=== PATIENT | female | born 2000 | race African-American/Black ===

== ENCOUNTER 2023-03-01 20:50 | Emergency (ER) | payer OTHER ==
[2023-03-01 21:14] VITALS: BP 120/80
[2023-03-01] MEDS ORDERED: polyethylene glycoL 3350 17 GM PACKET PO STA (21:19)
--- NOTE | 2023-03-01 21:21 | ED Physician Documentation ---
PD HPI ABD PAIN - Stated complaint Stated Complaint: FEMALE - Chief complaint Chief Complaint: Abd Pain - History obtained from History obtained from: Patient - Additional information Additional information: 22-year-old G now 4P2. LMP of February 02 corresponding to 4-week and 5-day gestation. She feels quite bloated and has not had a bowel movement in 5 days. She has been nauseous without vomiting. She denies urinary complaints. There is no pelvic pain or cramping. No fluid loss or bleeding. No other health problems. PD PAST MEDICAL HISTORY - Past Medical History Past Medical History: No Cardiovascular: None Respiratory: None Neuro: None Endocrine/Autoimmune: None GI: None APPELLATE CONFEREE: None : None HEENT: None Psych: None Musculoskeletal: None Derm: None - Past Surgical History Past Surgical History: No - Present Medications Home Medications: Ambulatory Orders Medication Instructions Recorded Confirmed Metoclopramide [Reglan] 10 mg PO Q6H PRN #20 tablet 03/01/23 Pnv 119/Iron Fum/Folic Acid 1 cap PO DAILY 03/01/23 03/01/23 [ 19 Tablet] polyethylene glycoL 3350(BULK) 17 gm PO DAILY PRN #1 each 03/01/23 [Miralax] - Allergies Allergies/Adverse Reactions: Allergies Allergy/AdvReac Type Severity Reaction Status Date / Time Penicillins AdvReac Unknown Verified 03/01/23 21:07 - Social History Does the pt smoke?: No Smoking Status: Never smoker Does the pt drink ETOH?: No Does the pt have substance abuse?: No - Immunizations Immunizations are current?: Yes - POLST Patient has POLST: No PD ED PE NORMAL - Vitals Vital signs reviewed: Yes - General General: Alert and oriented X 3, No acute distress - Abdomen Abdomen: Other (Soft and nontender but she is bloated with hyperactive bowel sounds. Bedside ultrasound demonstrates a suggestion of an intrauterine yolk sac but too early to give any more detail. No free fluid or ascites.) - Neuro Neuro: Alert and oriented X 3, Normal speech Results - Vitals Vitals: Vital Signs - 24 hr 03/01/23 21:04 Temperature 36.6 C Heart Rate 65 Respiratory 18 Rate Blood Pressure 120/80 O2 Saturation 100 Oxygen O2 Source Room air PD Medical Decision Making - ED course ED course: Her symptoms are suggestive of constipation. There really is not pelvic pain or cramping or free fluid or anything else to suggest an ectopic or the necessity for work-up for that. She has not pooped in 5 days and has not tried anything for it so that is certainly worth treating. She is given first dose of MiraLAX here. She is nauseous and treated with Reglan as well. Departure - Departure Disposition: Home, Self Care Clinical Impression: Constipation Qualifiers: Constipation type: other constipation type Qualified Code(s): K59.09 - Other co nstipation Condition: Good Record reviewed to determine appropriate education?: Yes Instructions: ED Constipation Prescriptions: polyethylene glycoL 3350(BULK) [Miralax] 17 gm PO DAILY PRN #1 each PRN Reason: Constipation Metoclopramide [Reglan] 10 mg PO Q6H PRN #20 tablet PRN Reason: nausea or headache Comments: As discussed, I suspect you are simply constipated, take the MiraLAX and you can repeat dose tomorrow drinking plenty of fluids and I also prescribed something for nausea. If not better in the next 24 to 48 hours please return for reevaluation. Sooner if worse.
== END 2023-03-01 21:34 | disposition home or self-care (01) ==
LOC: ED 20:50
DX: O26.891 Other specified pregnancy related conditions, first trimester (principal); Z3A.01 Less than 8 weeks gestation of pregnancy; K59.00 Constipation, unspecified
CPT/HCPCS: 99282; 99283; A9270

== ENCOUNTER 2023-03-16 08:00 | Outpatient (CLI) | payer OTHER ==
[2023-03-16 17:00] LABS: BILIRUBIN,URINE NEGATIVE (NEGATIVE); GLUCOSE, URINE (UA) NEGATIVE (NEGATIVE); KETONES,URINE (UA) NEGATIVE (NEGATIVE); LEUKOCYTE ESTERASE, URINE NEGATIVE (NEGATIVE); NITRITE,URINE NEGATIVE (NEGATIVE); OCCULT BLOOD,URINE NEGATIVE (NEGATIVE); PROTEIN,URINE NEGATIVE (NEGATIVE); UROBILINOGEN,URINE 0.2 (NORMAL) E.U./dL (NORMAL)
[2023-03-16 17:01] LABS: CLARITY,URINE HAZY (CLEAR)
[2023-03-16 17:13] LABS: RBC,URINE None Seen /HPF (0-5); WBC,URINE 0-3 /HPF (0-5)
[2023-03-16 17:14] LABS: AMORPHOUS SEDIMENT,UR Moderate /LPF; BACTERIA,URINE Rare /HPF (None Seen); SQUAMOUS EPITHELIAL CELL,UR MOD Squamous (<= Few)
== END 2023-03-16 23:59 | disposition home or self-care (01) ==
LOC: LAB.WC 08:00
PROVIDERS: ATTEND Obstetrics & Gynecology
DX: Z34.90 Encounter for supervision of normal pregnancy, unspecified, unspecified trimester (principal)
CPT/HCPCS: 81001; 87086

== ENCOUNTER 2023-03-17 07:39 | Outpatient (CLI) | payer OTHER ==
[2023-03-17 12:14] LABS: BASOPHILS % (AUTO) 0.4 %; EOSINOPHILS # (AUTO) 0.1 10^3/uL (0.0-0.7); EOSINOPHILS % (AUTO) 1.1 %; HCT - HEMATOCRIT 35.3 % (37.0-47.0); HGB - HEMOGLOBIN 11.4 g/dL (12.0-16.0); LYMPHOCYTES # (AUTO) 1.7 10^3/uL (1.5-3.5); LYMPHOCYTES % (AUTO) 23.8 %; MEAN CORPUSCULAR HEMOGLOBIN 27.2 pg (27.0-31.0); MEAN CORPUSCULAR HGB CONC 32.3 g/dL (32.0-36.0); MEAN CORPUSCULAR VOLUME 84.2 fL (81.0-99.0); MEAN PLATELET VOLUME 11.5 fL (7.9-10.8); MONOCYTES # (AUTO) 0.7 10^3/uL (0.0-1.0); MONOCYTES % (AUTO) 9.4 %; NEUTROPHILS # (AUTO) 4.6 10^3/uL (1.5-6.6); PLT - PLATELET COUNT 210 10^3/uL (130-450); RED BLOOD COUNT 4.19 10^6/uL (4.20-5.40); RED CELL DISTRIBUTION WIDTH 14.3 % (12.0-15.0); WHITE BLOOD COUNT 7.1 x10^3/uL (4.8-10.8)
[2023-03-18 02:08] LABS: HBsAG SCREEN Negative (Negative)
[2023-03-18 04:09] LABS: RPR Non Reactive (Non Reactive)
[2023-03-18 08:10] LABS: HCV AB Non Reactive (Non Reactive); HIV SCREEN 4TH GENERATION Non Reactive (Non Reactive); VARICELLA-ZOSTER AB IGG 200 index (Immune >165)
== END 2023-03-17 07:40 | disposition home or self-care (01) ==
LOC: LAB.N 07:39
PROVIDERS: ATTEND Obstetrics & Gynecology
DX: Z34.90 Encounter for supervision of normal pregnancy, unspecified, unspecified trimester (principal)
CPT/HCPCS: 36415; 81599; 85025; 86592; 86762; 86787; 86803; 86850; 86870; 86880; 86900; 86901; 87340; 87389

== ENCOUNTER 2023-03-20 19:59 | Emergency (ER) | payer OTHER ==
[2023-03-20 20:11] VITALS: BP 112/74; O2SAT 99
[2023-03-20 21:06] LABS: BASOPHILS % (AUTO) 0.4 %; EOSINOPHILS # (AUTO) 0.1 10^3/uL (0.0-0.7); EOSINOPHILS % (AUTO) 1.4 %; HCT - HEMATOCRIT 37.8 % (37.0-47.0); HGB - HEMOGLOBIN 12.1 g/dL (12.0-16.0); LYMPHOCYTES # (AUTO) 2.7 10^3/uL (1.5-3.5); LYMPHOCYTES % (AUTO) 34.4 %; MEAN CORPUSCULAR HEMOGLOBIN 27.3 pg (27.0-31.0); MEAN CORPUSCULAR VOLUME 85.1 fL (81.0-99.0); MONOCYTES # (AUTO) 0.6 10^3/uL (0.0-1.0); MONOCYTES % (AUTO) 8.1 %; NEUTROPHILS # (AUTO) 4.3 10^3/uL (1.5-6.6); NEUTROPHILS % (AUTO) 55.6 %; PLT - PLATELET COUNT 212 10^3/uL (130-450); RED BLOOD COUNT 4.44 10^6/uL (4.20-5.40); RED CELL DISTRIBUTION WIDTH 14.2 % (12.0-15.0); WHITE BLOOD COUNT 7.7 x10^3/uL (4.8-10.8)
--- NOTE | 2023-03-20 21:14 | ED Physician Documentation ---
PD HPI FEMALE - Stated complaint Stated Complaint: ABDOMINAL PX - Chief complaint Chief Complaint: Abd Pain - History obtained from History obtained from: Patient - Additional information Additional information: Patient is a 22-year-old female presenting for evaluation of lower abdominal cramping. She estimates that she is approximately 7 weeks . G4, P2 with 1 prior miscarriage. She was seen in the OB clinic last week just for confirmation of her with a urine test. She had outpatient labs and ultrasound ordered but has not had these done yet. She denies any vaginal bleed ing. She denies dizziness or lightheadedness. She states there has been no change in the cramping but it has been going on since Monday and thus wanted to be evaluated this evening. She denies dysuria or hematuria. No chest pain or shortness of air. Review of Systems Constitutional: denies: Fever Cardiac: denies: Chest pain / pressure Respiratory: denies: Dyspnea GI: denies: Abdominal Pain, Vomiting : denies: Dysuria, Vaginal bleeding Musculoskeletal: denies: Back pain PD PAST MEDICAL HISTORY - Past Medical History Cardiovascular: None Respiratory: None Neuro: None Endocrine/Autoimmune: None GI: None BEHAVIORAL TECHNICIAN: None : None HEENT: None Psych: None Musculoskeletal: None Derm: None - Past Surgical History Past Surgical History: No - Present Medications Home Medications: Ambulatory Orders Medication Instructions Recorded Confirmed Metoclopramide [Reglan] 10 mg PO Q6H PRN #20 tablet 03/01/23 Pnv 119/Iron Fum/Folic Acid 1 cap PO DAILY 03/01/23 03/01/23 [ 19 Tablet] polyethylene glycoL 3350(BULK) 17 gm PO DAILY PRN #1 each 03/01/23 [Miralax] - Allergies Allergies/Adverse Reactions: Allergies Allergy/AdvReac Type Severity Reaction Status Date / Time Penicillins AdvReac Unknown Unknown Verified 03/20/23 20:12 - Social History Does the pt smoke?: No Smoking Status: Never smoker Does the pt drink ETOH?: No Does the pt have substance abuse?: No - Immunizations Immunizations are current?: Yes - POLST Patient has POLST: No PD ED PE NORMAL - General General: Alert and oriented X 3, No acute distress, Well developed/nourished - HEENT HEENT: Atraumatic - Neck Neck: Supple, no meningeal sign - Cardiac Cardiac: RRR, No murmur - Respiratory Respiratory: No respiratory distress, Clear bilaterally - Abdomen Abdomen: Normal bowel sounds, Soft, Non tender, Non distended - Derm Derm: Warm and dry - Extremities Extremities: No edema - Neuro Neuro: Normal speech Results - Vitals Vitals: Vital Signs - 24 hr 03/20/23 20:09 Temperature 36.0 C L Heart Rate 66 Respiratory 16 Rate Blood Pressure 112/74 O2 Saturation 99 Oxygen O2 Source Room air - Labs Labs: Laboratory Tests 03/20/23 03/20/23 03/20/23 20:59 20:59 21:22 WBC 7.7 RBC 4.44 Hgb 12.1 Hct 37.8 MCV 85.1 MCH 27.3 MCHC 32.0 RDW 14.2 Plt Count 212 MPV 11.0 H Neut # (Auto) 4.3 Lymph # (Auto) 2.7 [place] # (Auto) 0.6 Eos # (Auto) 0.1 Baso # (Auto) 0.0 Absolute Nucleated RBC 0.00 Nucleated RBC % 0.0 Sodium 136 Potassium 3.2 L Chloride 105 Carbon Dioxide 20 L Anion Gap 11.0 BUN 9 Creatinine 0.7 Estimated GFR (MDRD) 125 Glucose 82 Calcium 9.5 Total Bilirubin 0.2 AST 19 ALT 12 Alkaline Phosphatase 34 L Total Protein 7.8 Albumin 4.2 Globulin 3.6 Albumin/Globulin Ratio 1.2 Beta HCG, Quant 154540.8 Urine Color YELLOW Urine Clarity CLEAR Urine pH 5.5 Ur Specific [place] 1.025 Urine Protein NEGATIVE Urine Glucose (UA) NEGATIVE Urine Ketones NEGATIVE Urine Occult Blood NEGATIVE Urine Nitrite NEGATIVE Urine Bilirubin NEGATIVE Urine Urobilinogen 0.2 (NORMAL) Ur Leukocyte Esterase NEGATIVE Ur Microscopic Review NOT INDICATED Urine Culture Comments NOT INDICATED PD Medical Decision Making - ED course Complexity details: reviewed results, re-evaluated patient, d/w patient ED course: Patient is a 22-year-old female presenting for evaluation of abdominal cramping in early . She is approximately 7 weeks . Her blood type is B+ that she does not need RhoGAM. CBC, chemistries and urinalysis were obtained and reviewed.Potassium is 3.2 which was replaced orally. hCG is approximately 138,000. Unfortunately at the time of patient's presentation in the emergency department, ultrasound was not available for the evening. Therefore I did perform a bedside ultrasound and was able to confirm an intrauterine . There is positive cardiac activity with approximate heart rate of 140 bpm. Remy rump length based on my estimations is 7 weeks 3 days.I did not see any free fluid.Patient's abdominal exam is benign. Patient is aware that she should call the OB clinic tomorrow to arrange for close follow-up and to have her formal ultrasound done. Patient is counseled on strict return precautions for any new or worsening symptoms. Departure - Departure Disposition: 01 Home, Self Care Clinical Impression: Abdominal cramping affecting , Hypokalemia Condition: Stable Instructions: ED Preg Established Normal Sxs Follow-Up: Roberth Lizama MD [Provider Admit Priv/Credential] - Comments: Please call Dr. Lizama office tomorrow morning for close follow-up. On your testing today your potassium level was slightly low we did give you a potassium pill. Although we did not have formal ultrasound available tonight we did perform a bedside ultrasound showing the located inside the uterus. The fetus does have a good heart rate and is measuring accordingly with your last menstrual period. Your hCG level is 138,000 and your blood type is B+. Please continue to stay hydrated and get plenty of rest. Return to the ER if you develop worsening symptoms such as increased pain, dizz iness, Heavy vaginal bleeding or any new concerns. Forms: PCP List Discharge Date/Time: 03/20/23 22:20
[2023-03-20 21:27] LABS: ALBUMIN 4.2 g/dL (3.2-5.5); ALBUMIN/GLOBULIN RATIO 1.2 (1.0-2.2); BILIRUBIN,TOTAL 0.2 mg/dL (0.2-1.0); CALCIUM 9.5 mg/dL (8.5-10.3); CREATININE 0.7 mg/dL (0.4-1.0); POTASSIUM 3.2 mmol/L (3.5-5.0); TOTAL PROTEIN 7.8 g/dL (6.7-8.2)
[2023-03-20] MEDS ORDERED: POTASSIUM CHLORIDE 20 MEQ TABLET PO STA (21:38)
[2023-03-20 21:39] LABS: BILIRUBIN,URINE NEGATIVE (NEGATIVE); GLUCOSE, URINE (UA) NEGATIVE (NEGATIVE); KETONES,URINE (UA) NEGATIVE (NEGATIVE); LEUKOCYTE ESTERASE, URINE NEGATIVE (NEGATIVE); NITRITE,URINE NEGATIVE (NEGATIVE); OCCULT BLOOD,URINE NEGATIVE (NEGATIVE); PH,URINE 5.5 PH (5.0-7.5); PROTEIN,URINE NEGATIVE (NEGATIVE); UROBILINOGEN,URINE 0.2 (NORMAL) E.U./dL (NORMAL)
[2023-03-20 21:43] LABS: CLARITY,URINE CLEAR (CLEAR)
== END 2023-03-20 22:20 | disposition home or self-care (01) ==
LOC: ED 19:59
DX: O99.891 Other specified diseases and conditions complicating pregnancy (principal); R10.30 Lower abdominal pain, unspecified; E87.6 Hypokalemia; Z3A.01 Less than 8 weeks gestation of pregnancy
CPT/HCPCS: 36415; 80053; 81003; 84702; 85025; 99283; 99284; A9270; 81001; 87086

== ENCOUNTER 2023-03-21 11:05 | Outpatient (CLI) | payer OTHER | END 2023-03-21 11:06 | disposition home or self-care (01) | LOC: LAB 11:05 | PROVIDERS: ATTEND Obstetrics & Gynecology | DX: Z53.9 Procedure and treatment not carried out, unspecified reason (principal) ==

== ENCOUNTER 2023-04-03 16:26 | Outpatient (CLI) | payer OTHER ==
--- NOTE | 2023-04-03 20:45 | Ultrasound Report ---
PROCEDURE: OB First Trimester INDICATIONS: POSITIVE TEST OUTSIDE/PRIOR DATING DATA: Last menstrual period (LMP): 01/28/2023. LMP-based estimated date of delivery (TARAS): 11/04/2023. First dating scan (date and location): Today's exam. Estimated date of delivery (TARAS) from first dating scan: 11/01/2023. TECHNIQUE: Real-time scanning was performed of the fetus and maternal pelvic organs, with image documentation. COMPARISON: None FINDINGS: Intrauterine gestational sac present. Embryo: pole present, measuring 2.9 cm, corresponding to 9 weeks 5 days. Heart rate: 173 bpm. Other: No perigestational fluid collection. Measurement variability in dating: +/- 4 weeks by LMP, +/- 7 days by mean sac diameter (use before 6 weeks gestation if crown-rump length not able to be measured), +/- 5 days by crown-rump length (6-12 weeks gestation). Maternal organs: Ovaries appear within normal limits. IMPRESSION: Single living intrauterine at 9 weeks 5 days, TARAS of 11/01/2023. Findings are concordant wit h clinical dating. Reviewed by: Juancho Wilkerson on 04/03/2023 8:44 PM PDT Approved by: Juancho Wilkerson on 04/03/2023 8:44 PM PDT Station ID: [id number]
== END 2023-04-03 16:27 | disposition home or self-care (01) ==
LOC: DI 16:26
PROVIDERS: ATTEND Obstetrics & Gynecology
DX: Z34.91 Encounter for supervision of normal pregnancy, unspecified, first trimester (principal)

== ENCOUNTER 2023-04-13 08:00 | Outpatient (CLI) | payer OTHER ==
[2023-04-13 21:26] LABS: CHLAMYDIA TRACHOMATIS DNA NEGATIVE (NEGATIVE); NEISSERIA GONORRHOEAE DNA NEGATIVE (NEGATIVE); TRICHOMONAS VAGINALIS DNA NEGATIVE (NEGATIVE)
== END 2023-04-13 23:59 | disposition home or self-care (01) ==
LOC: LAB.WC 08:00
PROVIDERS: ATTEND Obstetrics & Gynecology
DX: Z34.90 Encounter for supervision of normal pregnancy, unspecified, unspecified trimester (principal)
CPT/HCPCS: 87491; 87591; 87661

== ENCOUNTER 2023-06-08 12:37 | Outpatient (CLI) | payer OTHER ==
[2023-06-08 14:20] LABS: THYROID STIMULATING HORMONE 1.34 uIU/mL (0.34-5.60)
[2023-06-13 20:07] LABS: AFP MOM 0.72 (.); AFP VALUE 39.3 ng/mL (.); GEST. AGE ON COLLECTION DATE 18.7 weeks (.); GESTAT. AGE METHOD EDD (.); INSULIN DEP DIABETES No (.); MATERNAL AGE AT EDD 25.3 yr (.); MULTIPLE GESTATION No (.); OPEN SPINA BIFIDA RISK 1 IN 10000 (.); RACE Black (.); RESULTS Report (.); TEST RESULTS *Screen Negative* (.); WEIGHT 144 lbs (.)
== END 2023-06-08 12:38 | disposition home or self-care (01) ==
LOC: LAB 12:37
PROVIDERS: ATTEND Obstetrics & Gynecology
DX: O99.891 Other specified diseases and conditions complicating pregnancy (principal); G47.9 Sleep disorder, unspecified
CPT/HCPCS: 36415; 82105; 84443

== ENCOUNTER 2023-06-20 08:13 | Outpatient (CLI) | payer OTHER ==
--- NOTE | 2023-06-20 19:26 | Ultrasound Report ---
PROCEDURE: OB Detailed Eval INDICATIONS: SUPERVISION OF OUTSIDE/PRIOR DATING DATA: Last menstrual period (LMP): 01/28/2023. LMP-based estimated date of delivery (TARAS): 11/04/2023. First dating scan (date and location): 04/03/2023. Estimated date of delivery (TARAS) from first dating scan: 11/01/2023. The below data below was generated using the ultrasound TARAS of 11/01/2023 TECHNIQUE: Real-time scanning was performed of the fetus, with image documentation and biometric measurements. Endovaginal scanning: Not performed. COMPARISON: 04/03/2023 FINDINGS: General: A single living intrauterine gestation is present. Presentation: Vertex Placenta: Placental position is posterior, without previa. Amniotic fluid index: 17.9 cm, within normal limits for gestational age. Largest vertical pocket me asured 4.9 cm. heart rate: 155 beats per minute. Maternal cervical canal: 2.8 cm long; normal length is 2.5 cm or more. biometrics: Biparietal diameter: 5.0 cm, 21 weeks and 2 days-81st percentile Head circumference: 18.2 cm, 20 weeks and 4 days-49th percentile Abdominal circumference: 15.2 cm, 20 weeks and 3 days-42nd percentile Femur length: 3.4 cm, 20 weeks and 5 days-52nd percentile Estimated gestational age from initial scan: 20 weeks and 3days Composite gestational age from present scan: 20 weeks and 4 days Estimated weight and percentile: 362 g, 53rd percentile Measurement variability in biometric dating: +/- 10 days from 12-20 weeks gestation, +/- 2 weeks from 20-30 weeks gestation, +/- 3 weeks at 30 weeks gestation or later. Anatomic survey: Neuro: Ventricles are normal at less than 10 mm. Cisterna magna is normal at 3-11 mm. Cerebellum i s normal in size and morphology. Nuchal skin fold: Normal at less than 6 mm between 14 and 20 weeks gestational age. Face: Nose and lips, facial profile are normal. Spine: No evidence for spina bifida. Heart: 4-chambered heart is present, with normal ventricular outflow tracts. Diaphragm: Diaphragm is intact. Stomach: Left-sided stomach is present. Kidneys: No hydronephrosis. Normal is less than 5 mm in 2nd trimester, less than 7 mm in 3rd trimester. Cord: 3 vessel cord has orthotopic insertion. Bladder: Normal in size. Extremities: All 4 extremities are visualized. IMPRESSION: Single living intrauterine gestation with estimated sonographic gestational age of approximately 20 w eeks and 4 days. This measures concordantly with estimated gestational age by initial ultrasound of a pproximately 20 weeks and 3 days. Estimated weight of approximately 362 g which correlates with the 53rd percentile for gestational age. Normal interval growth has occurred. Normal routine second trimester anatomy screening survey. Reviewed by: Dejuan Drew MD on 06/20/2023 7:24 PM PST Approved by: Dejuan Drew MD on 06/20/2023 7:24 PM PST Station ID: [id number]
== END 2023-06-20 08:14 | disposition home or self-care (01) ==
LOC: DI 08:13
PROVIDERS: ATTEND Nurse Practitioner
DX: Z34.92 Encounter for supervision of normal pregnancy, unspecified, second trimester (principal)

== ENCOUNTER 2023-08-08 08:18 | Outpatient (CLI) | payer OTHER ==
[2023-08-08 09:29] LABS: HCT - HEMATOCRIT 36.5 % (37.0-47.0); HGB - HEMOGLOBIN 11.8 g/dL (12.0-16.0); MEAN CORPUSCULAR HEMOGLOBIN 27.4 pg (27.0-31.0); MEAN CORPUSCULAR HGB CONC 32.3 g/dL (32.0-36.0); MEAN CORPUSCULAR VOLUME 84.9 fL (81.0-99.0); RED BLOOD COUNT 4.3 10^6/uL (4.20-5.40)
== END 2023-08-08 08:19 | disposition home or self-care (01) ==
LOC: LAB 08:18
PROVIDERS: ATTEND Nurse Practitioner
DX: Z34.90 Encounter for supervision of normal pregnancy, unspecified, unspecified trimester (principal)
CPT/HCPCS: 36415; 82950; 85027

== ENCOUNTER 2023-10-12 08:00 | Outpatient (CLI) | payer OTHER | END 2023-10-12 23:59 | disposition home or self-care (01) | LOC: LAB.WC 08:00 | PROVIDERS: ATTEND Nurse Practitioner | DX: Z36.85 Encounter for antenatal screening for Streptococcus B (principal) | CPT/HCPCS: 87797 ==

== ENCOUNTER 2023-10-29 21:15 | Inpatient (IN) | payer OTHER ==
[2023-10-29] MEDS ORDERED: diphenhydrAMINE INJ 50 MG/ML VIAL IVP PRN (21:51)
[2023-10-29] MEDS ORDERED: OXYTOCIN 10 UNIT/ML VIAL IM PRN (21:51)
[2023-10-29] MEDS ORDERED: ONDANSETRON ODT 4 MG TABLET PO PRN (21:51)
[2023-10-29] MEDS ORDERED: OXYTOCIN/SODIUM CHLORIDE 500 ML IV PRN (21:51)
[2023-10-29] MEDS ORDERED: LABETALOL 20 MG/4 ML SYRINGE IVP PRN ×3 (21:51)
[2023-10-29] MEDS ORDERED: miSOPROStoL 200 MCG TABLET PR PRN (21:51)
[2023-10-29] MEDS ORDERED: TERBUTALINE 1 MG/ML VIAL SUBQ PRN (21:51)
[2023-10-29] MEDS ORDERED: miSOPROStoL 200 MCG TABLET BC PRN (21:51)
[2023-10-29] MEDS ORDERED: hydrALAZINE INJ 20 MG/ML VIAL IVP PRN ×2 (21:51)
[2023-10-29] MEDS ORDERED: TRANEXAMIC ACID IN NACL 1,000 MG/100 ML BAG IV PRN (21:51)
[2023-10-29] MEDS ORDERED: ONDANSETRON 4 MG/2 ML VIAL IVP PRN (21:51)
[2023-10-29] MEDS ORDERED: CALCIUM CARBONATE CHEW 500 MG TABLET PO PRN (21:51)
[2023-10-29] MEDS ORDERED: NIFEdipine 10 MG CAPSULE PO PRN (21:51)
[2023-10-29] MEDS ORDERED: METOCLOPRAMIDE 10 MG TABLET PO PRN (21:51)
[2023-10-29] MEDS ORDERED: METHYLERGONOVINE 0.2 MG/ML VIAL IM PRN (21:51)
[2023-10-29] MEDS ORDERED: METOCLOPRAMIDE 10 MG/2 ML VIAL IVP PRN (21:51)
[2023-10-29] MEDS ORDERED: fentaNYL 100 MCG/2 ML VIAL IVP PRN (21:51)
[2023-10-29] MEDS ORDERED: CARBOPROST TROMETHAMINE 250 MCG/ML VIAL IM PRN (21:51)
[2023-10-29] MEDS ORDERED: lidocaine 1% 20 ML MDV ID PRN (21:51)
[2023-10-29] MEDS ORDERED: SODIUM CHLORIDE FLUSH 0.9% 10 ML SYRINGE IVP PRN (21:51)
[2023-10-29] MEDS ORDERED: ACETAMINOPHEN 500 MG TABLET PO PRN (21:51)
--- NOTE | 2023-10-29 21:59 | PROVIDER PROGRESS NOTE ---
Progress Note HPI: 23y/o G-4P-2 TARAS 11/04/2023. Here for routine OB follow up at 38+5. PT having irregular cxt that are getting more regular, some edema in feet, Baby active. ...................................................................Nikki Cardona October 26, 2023 1:20 PM. Allergies: Allergies Reviewed: Done PENICILLIN (PENICILLIN V POTASSIUM) (Severe) Medications: Meds Reviewed: Done * Electric Breast pump Use 1 device as directed as directed USE TO EXPRESS MILK ACCORDING TO BABY'S NEEDS Z39.1 TARAS 11/04/2023 Blood Pressure Kit kit (blood pressure monitor) Use 1 kit as directed once a day as needed when you have a headache 28 mg iron- 800 mcg tablet (pnv cmb#95-ferrous fumarate-fa) Take 1 tablet by mouth once a day ondansetron HCl 4 mg tablet (ondansetron hcl) Take 1 tablet by mouth every six hours as needed for nausea Problems: Emotional AND/OR mental disease in mother complicating , third trimester (ICD-648.43) (VVW14-Y85.343) Conjunctivitis, right (ICD-372.30) (IWJ72-F04.9) Difficulty sleeping (ICD-780.50) (JAR61-F13.820) Tension-type headache (ICD-339.10) (RYN74-Y94.209) Abdominal pain in early (ICD-648.93) (UUL96-K88.9) Supervision of normal (ICD-V22.1) (DUF08-O84.90) Past Medical History: Denies Past Surgical History: Denies Vital Signs: Patient Profile: 23 Years Old Female Height: 63 inches Weight: 178 pounds BMI: 31.65 BP sittin / 68 Cuff size: regular Pt. in pain? yes Intensity: 4 Vitals Entered By: Nikki Cardona (October 26, 2023 1:20 PM) Meds Reviewed: Done Allergies Reviewed: Done Flowsheet View for Follow-up Visit Estimated weeks of gestation: 38 12/11 Weight: 178 Blood pressure: 118 / 68 Fundal height: Big. Did not complete FHR: 153 Vaginal bleeding: no Vaginal discharge: no activity: yes Labor symptoms: yes position: vertex Cx Dilation: 4 Cx Effacement: 80% Cx Station: -3 Taking vits? Y Smoking: n/a Next visit: likely to L&D Comment: Reviewed GBS negative. FOB came back from deployment last night and surprised her. Caspian sex through since his return. SVE /-2 but still posterior. Not actively maycol regularily. WOuld like to go home and get some errands done. Labor precautions reviewed. L&D charge made aware. ~KJB LMP: 01/28/23 TARAS by LMP: 11/04/23 US: 10/31 @ 9w. Final TARAS: 11/04/23 LDASA initiated 05/10/2023 Chronic tension headaches PCN allergy - note with GBS testing. HTLA Antibodies in blood not clinically significant Not a red cell antibody and not associated with alloimmunization. This will make crossmatch diffucult if patient requires transfusion. If a planned for induction, can consider crossmatch early the morning prior to procedure. This will need to be sent out and will take approximately 24 hours for finalization of appropriately crossmatched blood. care with blood transfusion FOB plans to deploy, mother in law moving in 07/18. Pre- Weight:146.2 BMI: 25.99 Blood type: B+ Antibody: negative CBC: PLT 210 HCT 35.3 HGB 11.4 RUB: 38 VZV: 200 HBsAg: negative HepC: NR RPR/AB-EIA: NR HIV: NR PAP: 02/2023 ASCUS HR HPV+, -16/18- repeat GC/CT: 04/13 Negative HSV: denies self/ partner Genetic testing:MaternitI 21- Negative; AFP- Negative Covid: vaccinated Flu: given 04/13/2023 FAS: completed 06/20/23 Placenta: posterior Cord: 3VC ANGELA: normal EFW: 53%ile 50gm OGCT: 95 TDAP:08/17 Breast Pump:08/17 3rd trimester 08/08/23- H/H 11.8/36.5 PLT 205 GBS: 10/12/2023- Negative Delivery plan: Contraception: This is her last , per pt. Impression & Recommendations: Problem # 1: Supervision of normal (ICD-V22.1) (CML96-O78.90) P: 2 T: 2 A: 1 SAB: 1 L: 2 LMP: 01/28/2023 EDC: 11/04/2023 Height: 63 (09/14/2023 2:52:56 PM) Weight: 178 Weight (pre-): 146.2 (03/16/2023 8:51:02 AM) Chlamydia: NEGATIVE (04/13/2023 11:12:00 AM) Group B: NEGATIVE (10/12/2023 2:30:00 PM) Blood Type: B POS^B POSITIVE^L (03/17/2023 7:47:00 AM) Last Antibody Screen: POSITIVE (03/17/2023 7:47:00 AM) Chlamydia: NEGATIVE (04/13/2023 11:12:00 AM) RPR: Non Reactive (03/17/2023 7:47:00 AM) Last Pap: ASCUS (02/22/2023 8:14:15 AM)
[2023-10-29 23:08] LABS: BASOPHILS % (AUTO) 0.2 %; EOSINOPHILS # (AUTO) 0.2 10^3/uL (0.0-0.7); EOSINOPHILS % (AUTO) 2.3 %; HCT - HEMATOCRIT 34.3 % (37.0-47.0); HGB - HEMOGLOBIN 11.3 g/dL (12.0-16.0); LYMPHOCYTES # (AUTO) 1.9 10^3/uL (1.5-3.5); LYMPHOCYTES % (AUTO) 21.7 %; MEAN CORPUSCULAR HEMOGLOBIN 27.7 pg (27.0-31.0); MEAN CORPUSCULAR HGB CONC 32.9 g/dL (32.0-36.0); MEAN CORPUSCULAR VOLUME 84.1 fL (81.0-99.0); MEAN PLATELET VOLUME 12.1 fL (7.9-10.8); MONOCYTES # (AUTO) 0.7 10^3/uL (0.0-1.0); MONOCYTES % (AUTO) 8.4 %; NEUTROPHILS # (AUTO) 5.7 10^3/uL (1.5-6.6); NEUTROPHILS % (AUTO) 66.8 %; PLT - PLATELET COUNT 193 10^3/uL (130-450); RED BLOOD COUNT 4.08 10^6/uL (4.20-5.40); RED CELL DISTRIBUTION WIDTH 14.7 % (12.0-15.0); WHITE BLOOD COUNT 8.6 x10^3/uL (4.8-10.8)
[2023-10-30] MEDS: LACTATED RINGERS 1,000 ML IV PRN (00:03)
[2023-10-30] MEDS: OXYTOCIN/SODIUM CHLORIDE 500 ML IV SCH (00:04)
[2023-10-30] MEDS ORDERED: ROPIVACAINE 0.2% 200 MG/100 ML BAG EP ONE ×3 (02:32→07:30)
[2023-10-30] MEDS ORDERED: LIDOCAINE 2%-EPI 1:100000 20 ML MDV ONE (02:54)
[2023-10-30] MEDS ORDERED: NALOXONE 0.4 MG/ML VIAL IVP PRN (03:44)
[2023-10-30] MEDS ORDERED: ePHEDrine 50 MG/ML VIAL IVP PRN (03:44)
[2023-10-30] MEDS ORDERED: ROPIVACAINE 0.2% 200 MG/100 ML BAG EP PRN (03:44)
[2023-10-30] MEDS ORDERED: ONDANSETRON 4 MG/2 ML VIAL IVP PRN ×2 (03:44→08:49)
[2023-10-30] MEDS ORDERED: diphenhydrAMINE INJ 50 MG/ML VIAL IVP PRN (03:44)
[2023-10-30] MEDS ORDERED: METOCLOPRAMIDE 10 MG/2 ML VIAL IVP PRN (03:44)
[2023-10-30] MEDS ORDERED: NALBUPHINE 10 MG/ML AMP IVP PRN (03:44)
--- NOTE | 2023-10-30 03:48 | ANESTHESIA ---
Pre-Anesthesia VS, & Labs - Diagnosis active labor - Procedure labor epidural Vital Signs: Temp Pulse Resp BP Pulse Ox O2 Flow Rate 36.7 C 81 16 140/81 H 10/29/23 21:51 10/29/23 21:51 10/29/23 21:51 10/29/23 21:51 Height: 5 ft 3 in Weight (kg): 178 kg Body Mass Index: 69.5 BMI Classification: Morbidly Obese - NPO Other (clears until delivery) - Is Patient ?: Yes - Lab Results Current Lab Results: Laboratory Tests 10/29/23 22:43: WBC 8.6, RBC 4.08 L, Hgb 11.3 L, Hct 34.3 L, MCV 84.1, MCH 27.7, MCHC 32.9, RDW 14.7, Plt Count 193, MPV 12.1 H, Neut # (Auto) 5.7, Lymph # (Auto) 1.9, [place] # (Auto) 0.7, Eos # (Auto) 0.2, Baso # (Auto) 0.0, Absolute Nucleated RBC 0.00, Nucleated RBC % 0.0 10/29/23 22:43: Blood Type B POSITIVE, Antibody Screen POSITIVE Fish Bones: 10/29/23 22:43 Home Medications and Allergies Active Medications Acetaminophen (Acetaminophen 500 Mg Tablet) 1,000 mg PO Q8HR PRN PRN Reason: Mild Pain or Fever>38C(100.4F) Calcium Carbonate/Glycine (Calcium Carbonate Chew 500 Mg Tablet) 1,000 mg PO Q6HR PRN PRN Reason: Heartburn Carboprost Tromethamine (Carboprost Tromethamine 250 Mcg/Ml Vial) 250 mcg IM .ONCE PRN PRN Reason: Hemorrhage Diphenhydramine HCl (Diphenhydramine Inj 50 Mg/Ml Vial) 25 mg IVP Q6H PRN PRN Reason: Allergy Symptoms Diphenhydramine HCl (Diphenhydramine Inj 50 Mg/Ml Vial) 12.5 - 25 mg IVP Q6HR PRN PRN Reason: ITCHING Ephedrine Sulfate (Ephedrine 50 Mg/Ml Vial) 5 mg IVP Q5M PRN PRN Reason: For SBP<100;give until SBP>100 Famotidine (Famotidine 20 Mg/2 Ml Vial) 20 mg IVP DAILY JONATHAN Fentanyl (Fentanyl 100 Mcg/2 Ml Vial) 50 mcg IVP Q1H PRN PRN Reason: Severe Pain (score 7-10) Hydralazine HCl (Hydralazine Inj 20 Mg/Ml Vial) 5 - 10 mg IVP Q20M PRN; Protocol PRN Reason: SBP> or= 160 OR DBP> or= 110 Hydralazine HCl (Hydralazine Inj 20 Mg/Ml Vial) 10 mg IVP .ONCE PRN; Protocol PRN Reason: SBP> or= 160 OR DBP> or= 110 Lactated Ringer's (Lr) 500 mls @ 999 mls/hr IV PRN PRN PRN Reason: Abdominal Pain Last Admin: 10/30/23 00:03 Dose: 999 mls/hr Oxytocin/Sodium Chloride (Pitocin/Sodium Chloride) 500 mls @ 999 mls/hr IV PRN PRN; Protocol PRN Reason: POST- HEMORR PREVENTION Tranexamic Acid (Tranexamic 1,000 Mg/100ml-Nacl) 1,000 mg in 100 mls @ 600 mls/hr IV Q30M PRN PRN Reason: EBL >1200mL and within 3hr Lactated Ringer's (Lr) 1,000 mls @ 75 mls/hr IV .[id number] JONATHAN Oxytocin/Sodium Chloride (Pitocin/Sodium Chloride) 500 mls @ 1 mls/hr IV TITR JONATHAN; Protocol Last Admin: 10/30/23 00:04 Dose: 1 milliunit/min, 1 mls/hr Lactated Ringer's (Lr) 500 mls @ 999 mls/hr IV ONCE ONE Stop: 10/30/23 04:14 Ropivacaine (Naropin 0.2%) 200 mg in 100 mls @ 0 mls/hr EP PRN PRN; Protocol PRN Reason: PAIN Labetalol HCl (Labetalol 20 Mg/4 Ml Syringe) 20 - 80 mg IVP Q10M PRN; Protocol PRN Reason: SBP> or= 160 OR DBP> or= 110 Labetalol HCl (Labetalol 20 Mg/4 Ml Syringe) 20 mg IVP .ONCE PRN; Protocol PRN Reason: SBP> or= 160 OR DBP> or= 110 Labetalol HCl (Labetalol 20 Mg/4 Ml Syringe) 20 - 40 mg IVP Q10M PRN; Protocol PRN Reason: SBP> or= 160 OR DBP> or= 110 Lidocaine HCl (Lidocaine 1% 20 Ml Mdv) 20 ml ID .ONCE PRN PRN Reason: PERINEAL REPAIR Stop: 11/01/23 21:51 Methylergonovine Maleate (Methylergonovine 0.2 Mg/Ml Vial) 0.2 mg IM .ONCE PRN PRN Reason: Hemorrhage Metoclopramide HCl (Metoclopramide 10 Mg Tablet) 5 mg PO Q6HR PRN PRN Reason: Nausea / Vomiting Metoclopramide HCl (Metoclopramide 10 Mg/2 Ml Vial) 5 mg IVP Q6HR PRN PRN Reason: Nausea / Vomiting Metoclopramide HCl (Metoclopramide 10 Mg/2 Ml Vial) 10 mg IVP Q6HR PRN PRN Reason: Nausea / Vomiting Misoprostol (Misoprostol 200 Mcg Tablet) 600 mcg BC .ONCE PRN PRN Reason: Hemorrhage Misoprostol (Misoprostol 200 Mcg Tablet) 800 mcg [place] .ONCE PRN PRN Reason: Hemorrhage Nalbuphine HCl (Nalbuphine 10 Mg/Ml Amp) 2.5 - 5 mg IVP Q4H PRN PRN Reason: ITCHING Naloxone HCl (Naloxone 0.4 Mg/Ml Vial) 0.1 mg IVP Q2M PRN PRN Reason: RR<8 Nifedipine (Nifedipine 10 Mg Capsule) 10 - 20 mg PO Q20M PRN; Protocol PRN Reason: SBP> or= 160 OR DBP> or= 110 Ondansetron HCl (Ondansetron Odt 4 Mg Tablet) 4 mg PO Q4HR PRN PRN Reason: Nausea / Vomiting Ondansetron HCl (Ondansetron 4 Mg/2 Ml Vial) 4 mg IVP PRN PRN PRN Reason: Nausea / Vomiting Ondansetron HCl (Ondansetron 4 Mg/2 Ml Vial) 4 mg IVP Q6HR PRN PRN Reason: Nausea / Vomiting Oxytocin (Oxytocin 10 Unit/Ml Vial) 10 unit IM .ONCE PRN PRN Reason: Step One if no IV access. Sodium Chloride (Sodium Chloride Flush 0.9% 10 Ml Syringe) 10 ml IVP PRN PRN PRN Reason: NEEDED PER PROVIDER ORDERS Sodium Chloride (Sodium Chloride Flush 0.9% 10 Ml Syringe) 10 ml IVP Q8H JONATHAN Terbutaline Sulfate (Terbutaline 1 Mg/Ml Vial) 0.25 mg SUBQ .ONCE PRN PRN Reason: Tachystole Pnv 119/Iron Fum/Folic Acid [ 19 Tablet] 1 cap PO DAILY 03/01/23 Allergies/Adverse Reactions: Allergies Allergy/AdvReac Type Severity Reaction Status Date / Time Penicillins AdvReac Unknown Unknown Verified 03/20/23 20:12 Anes History & Medical History - Anesthetic History Anesthesia Complications: reports: No previous complications - Medical History Cardiovascular: reports: None Pulmonary: reports: None Gastrointestinal: reports: None Urinary: reports: None Neuro: reports: None Musculoskeletal: reports: None Endocrine/Autoimmune: reports: None Blood Disorders: reports: None Skin: reports: None Smoking Status: Never smoker Exam General: Alert, Oriented x3 Dental: WNL Mouth Opening: Greater than 4 Fingerbreadths Neck Mobility: Normal Mallampati classification: II Thyromental Distance: greater than 6 cm Respiratory: Lungs clear Cardiovascular: Regular rate Plan Anesthesia Type: Epidural Consent for Procedure(s) Verified and Reviewed: Yes Code Status: Attempt Resuscitation ASA classification: 2-Mild systemic disease Is this case an emergency?: No
[2023-10-30 04:35] VITALS: O2SAT 98
[2023-10-30] MEDS ORDERED: fentaNYL 100 MCG/2 ML VIAL ONE (05:14)
--- NOTE | 2023-10-30 06:42 | HISTORY & PHYSICAL EXAMINATION ---
Admit History - Visit Reason Visit Reason: Contractions - : 4 Parity: 2 : 1 Care: positive: [facility] Risk/History: positive: Other (antibody + Nubia, [place]og[place], zara, s Ag on 03/22/23. pending today. will be a difficult cross match.) Complications This : positive: None Smoking Status: Never smoker - Mother's Labs Mother's Blood Type: positive: B Mother's RH: positive: Positive GBS: positive: Group B Step Negative Rubella Status: positive: Immune - Other Maternal History Other Maternal History: care uncomplicated. 2 prior vaginal deliveries. - HPI Current EDU 11/04/23 Gestation 39 Weeks and 2 Days 4 Para 2 Vital Signs Temperature 97.3 F L 10/29/23 21:26 Heart Rate 93 10/29/23 21:26 Respiratory Rate 18 10/29/23 21:26 Blood Pressure 140/81 H 10/29/23 21:26 Temperature 99.1 F 10/30/23 03:44 Heart Rate 98 10/30/23 03:44 Respiratory Rate 18 10/30/23 03:44 Blood Pressure 119/72 10/30/23 03:44 O2 Saturation 98 10/30/23 03:44 If not protocol: Oxygen Flow, liters/minute - NST Procedure NST Procedure Start Date 10/29/23 Start Time 21:26 Stop Time 21:50 Vibroacoustic Stimulation Used No Patient States Movement Yes Meds/Allgy - Home Medications Home Medications: Ambulatory Orders Medication Instructions Recorded Confirmed Metoclopramide [Reglan] 10 mg PO Q6H PRN #20 tablet 03/01/23 Pnv 119/Iron Fum/Folic Acid 1 cap PO DAILY 03/01/23 03/01/23 [ 19 Tablet] polyethylene glycoL 3350(BULK) 17 gm PO DAILY PRN #1 each 03/01/23 [Miralax] - Allergies Allergies/Adverse Reactions: Allergies Allergy/AdvReac Type Severity Reaction Status Date / Time Penicillins AdvReac Unknown Unknown Verified 03/20/23 20:12 Review of Systems - Gastrointestinal Gastrointestinal: denies: Nausea, Vomiting - Other Findings Other Findings: + movement. no headache, minimal swelling Physical - Abdominal Exam Vital Signs: Temp Pulse Resp BP Pulse Ox O2 Flow Rate 99.1 F 98 18 119/72 98 10/30/23 03:44 03/25/24 03:44 10/30/23 03:44 10/30/23 03:44 10/30/23 03:44 Contraction Frequency (min/apart): 5 Contraction Intensity: positive: Moderate to strong Uterine Resting Tone: positive: Soft - Monitoring Strip Review: positive: Category I - Presentation Presentation: positive: Vertex - Vaginal Exam Membranes: positive: Membranes ruptured (AROM with exam. clear fluid) Dilation (in cm): 8 Station: positive: -3 - Speculum Exam Speculum Exam Performed: positive: No - Other Notes Labor Progress Note/Additional Text: epidural not working very well. Plan for Labor - Plan For Labor I expect patient to be DC'd or transferred within 96 hours.: Yes Plan for Labor: anticipate within an hour or so. sign out given to Dr. Lizama who is assuming care. discussed difficulties with cross match if blood is needed.
[2023-10-30] MEDS ORDERED: LIDOCAINE-PF 2% 10 ML AMP SUBQ ONE (07:30)
[2023-10-30] MEDS ORDERED: SIMETHICONE CHEW 80 MG TABLET PO PRN (08:49)
[2023-10-30] MEDS ORDERED: CALCIUM CARBONATE CHEW 500 MG TABLET PO PRN (08:49)
--- NOTE | 2023-10-30 08:49 | DELIVERY NOTE ---
Delivery Note - Labor Labor: positive: Augmented by ARM, Augmented by oxytocin - Presentation Presentation: positive: Vertex - Nuchal Cord Nuchal Cord: positive: None - Anesthetic Anesthetic Type: - Amniotic Fluid Description Amniotic Fluid Description: positive: Clear - Laceration Laceration: positive: None - Delivery Outcome Delivery Outcome: positive: Livebirth - [place] : positive: Placed in direct skin contact with mother [place] sex: positive: Male - Cord Cord: positive: 3 vessels - Placenta Placenta: positive: Intact - Estimated Blood Loss Estimated Blood Loss (in cc): 100 - Post Delivery Events Post Delivery Events: positive: No post delivery events - Delivery Comments (Free Text/Narrative) Delivery Comments (Free Text/Narrative): Preoperative Diagnoses 39 weeks gestation Term labor Augmentation of labor Postoperative Diagnoses Same Deliver live victor Status post spontaneous vaginal delivery -Patient came in maycol painfully requesting an epidural. Had been laboring at home. Was augmented with oxytocin and then amniotomy. Received an epidural for pain control. Progressed to complete and ready to push. Delivery Summary: Patient was placed in the dorsal lithotomy position. Upon maternal pushing the head was delivered atraumatically followed by the anterior shoulder, posterior shoulder, then the remainder of the infant's body. A male infant was delivered with APGARS of 8 at 1 minute and 9 at 5 minutes. The was placed on its mother's chest . After the cord finished pulsating, the umbilical cord was clamped times two and cut. The placenta delivered intact with three vessel cord. Placenta was not sent to pathology. Thirty units of Pitocin were added to the IV fluid and allowed to run freely. Uterine massage was performed until uterus was deemed firm. Upon inspection of the perineum, vagina and cervix were intact. Upon re- inspection the patient was hemostatic. Uterus again massaged and found to be firm. Needle and sponge counts were correct. Patient was stable and allowed to recover in L&D room. was stable and remained in room with mother. weight is pending at this time.
[2023-10-30] MEDS: ACETAMINOPHEN 500 MG TABLET PO SCH (09:51)
[2023-10-30] MEDS: IBUPROFEN 600 MG TABLET PO SCH (09:52)
--- NOTE | 2023-10-30 10:11 | PHARMACY PROGRESS NOTE ---
- Best Possible Medication History Admit Date and Time: 10/29/232150 Processed by: Pharmacy Medications reviewed in ED?: No Medication History completed: In progress Patient Interview: Pt unable to participate Secondary Source(s): Physician records, Insurance records As the person ultimately responsible for medication therapy, providers are able to order a medication from an existing home medication list in [facility] via the "Reconcile Routine" prior to Confirmation of that medication by network support engineer. Such practice is discouraged except when the physician, in their clinical judgment, deems that a medical need exists for a medication without regard to previous use.
[2023-10-30] MEDS: SODIUM CHLORIDE FLUSH 0.9% 10 ML SYRINGE IVP SCH (10:47)
[2023-10-30] MEDS: FAMOTIDINE 20 MG/2 ML VIAL IVP SCH (10:47)
[2023-10-30] MEDS: LACTATED RINGERS 1,000 ML IV SCH ×2 (10:49→13:36)
[2023-10-30] MEDS: LACTATED RINGERS 500 ML IV ONE (13:36)
[2023-10-30] MEDS: DOCUSATE SODIUM 100 MG CAPSULE PO PRN (22:53)
--- NOTE | 2023-10-31 09:19 | DISCHARGE SUMMARY ---
Discharge Summary Admit Date: 10/30/23 Discharge Date: 10/02/23 Discharging Provider: Roberth Lizama MD Code Status: Attempt Resuscitation Condition at Discharge: Good Discharge Disposition: 01 Home, Self Care - DIAGNOSES Admission Diagnoses: 40 weeks gestation Term labor Abnormal antibody titer Discharge Diagnoses with Status of Each Condition: Same Deliver a live victor Status post spontaneous vaginal delivery - HPI History of Present Illness: Subjective Patient reports she is doing well. Lochia appropriate. Denies heavy bleeding. Ambulating. Pelvic and abdominal pain well-controlled. Tolerating oral intake. Diet: Regular. Voiding without difficulty. Passing flatus. Denies BM. Patient is bonding with baby in room Breast feeding going well. Denies feeling lightheaded, dizzy or excessively fatigued. Objective General: Alert, oriented, no apparent distress. Cardiovascular: Regular rate. Regular rhythm. Lungs: No increased work of breathing. Abdomen: Uterus firm. Below umbilicus. No guarding or rebound. Extremities: No pain on palpation. No cords palpated. Distal pulses intact. - HOSPITAL COURSE Hospital Course: Patient was admitted at term maycol regularly. She stalled in progression and Oxytocin was started had artificial rupture of membranes. Continue to progress to complete and the delivery team was called. Vaginal delivery was uncomplicated. course was uneventful and she was discharged on day 1 with her . - ALLERGIES Allergies/Adverse Reactions: Allergies Allergy/AdvReac Type Severity Reaction Status Date / Time Penicillins AdvReac Unknown Unknown Verified 03/20/23 20:12 - MEDICATIONS Home Medications: Ambulatory Orders Medication Instructions Recorded Confirmed Metoclopramide [Reglan] 10 mg PO Q6H PRN #20 tablet 03/01/23 Pnv 119/Iron Fum/Folic Acid 1 tab PO DAILY 03/01/23 10/30/23 [ 19 Tablet] polyethylene glycoL 3350(BULK) 17 gm PO DAILY PRN #1 each 03/01/23 [Miralax] Cetirizine [ZyrTEC] 10 mg PO DAILY 10/30/23 10/30/23 - LABS Result Diagrams: 10/29/23 22:43 - FOLLOW UP [facility] - TIME SPENT Time Spent in Discharge (Minutes): 20
--- NOTE | 2023-10-31 09:19 | Discharge Plan ---
Discharge Plan Problem Reviewed?: Yes Disposition: Home, Self Care Diet: Regular Instruction Topics: Depression , Vaginal After Additional Instructions or Follow Up instructions: Ibuprofen 600mg every 6 hours and acetaminophen 1000 mg every 6 hours as needed for pain. No Smoking: If you smoke, Please STOP! Call for help. Follow-up with: Amparo Calero ARNP [Provider Admit Priv/Credential] -
[2023-10-31 10:30] VITALS: BP 117/76
== END 2023-10-31 10:20 | disposition home or self-care (01) | DRG 998 ==
LOC: WFO 21:15 → FBP 21:16 → WFO 21:51
PROVIDERS: ADMIT Obstetrics & Gynecology; ATTEND Obstetrics & Gynecology
PROC: 10907ZC Drainage of Amniotic Fluid, Therapeutic from Products of Conception, Via Natural or Artificial Opening (ICD-10-PCS; 2023-10-29)
PROC: 10E0XZZ Delivery of Products of Conception, External Approach (ICD-10-PCS; principal; 2023-10-30)
DX: O75.89 Other specified complications of labor and delivery (principal); R76.0 Raised antibody titer; Z3A.39 39 weeks gestation of pregnancy; Z79.899 Other long term (current) drug therapy; Z88.0 Allergy status to penicillin
CPT/HCPCS: 36415; 59409; 81599; 85025; 86850; 86870; 86880; 86900; 86901; 86922; 99215; A9270; J7120

== ENCOUNTER 2024-01-19 14:25 | Outpatient (CLI) | payer OTHER ==
--- NOTE | 2024-01-19 17:51 | XRAY Report ---
PROCEDURE: Shoulder 2+V RT INDICATIONS: RIGHT SHOULDER PAIN TECHNIQUE: 2 views of the shoulder were acquired. COMPARISON: None. FINDINGS: Bones: No fractures or dislocations. No suspicious bony lesions. Visualized ribs appear intact. Soft tissues: No suspicious soft tissue calcifications. The visualized lungs are within normal limi ts. IMPRESSION: No acute bony abnormality. Reviewed by: Laisha Dubon MD on 01/19/2024 5:50 PM PDT Approved by: Laisha Dubon MD on 01/19/2024 5:50 PM PDT Station ID: [id number]
== END 2024-01-19 14:26 | disposition home or self-care (01) ==
LOC: DI 14:25
PROVIDERS: ATTEND Physician Assistant Medical
DX: M25.511 Pain in right shoulder (principal)